=== PATIENT | male | born 1950 | race American Indian/Alaskan Native ===

== ENCOUNTER 2016-12-29 20:54 | Emergency (ER) | payer MEDICARE ==
[2016-12-29 22:31] LABS: Bacteria,Urine 1+ /HPF (Negative); Bilirubin,Urine NEG (Negative); Blood,Urine NEG (Negative); Ketones,Urine NEG (Negative); Leukocyte Esterase,Urine LG (Negative); Mucus,Urine FEW /HPF; Nitrite,Urine NEG (Negative); Urobilinogen,Urine < 2.0 mg/dL (<2.0)
[2016-12-29 22:35] LABS: WBC,Urine > 182.0 /HPF (0.0-6.0)
[2016-12-29 22:37] LABS: Basophils % (Auto) 0.3 % (0.0-1.8); Eosinophils % (Auto) 0.8 % (0.0-4.3); Hematocrit 28.1 % (35.5-45.6); Hemoglobin 9.4 gm/dl (11.8-15.2); Mean Corpuscular HGB Conc 34 % (32-34); Mean Corpuscular Hemoglobin 35 pg (28-32); Mean Corpuscular Volume 104 fl (84-94); Platelet Count 204 K/mm3 (140-440); Red Blood Count 2.69 M/mm3 (3.65-5.03); Red Cell Distribution Width 16.3 % (13.2-15.2); White Blood Count 6.7 K/mm3 (4.5-11.0)
[2016-12-29 22:54] LABS: BUN/Creatinine Ratio 8.23; Calcium 8.7 mg/dL (8.4-10.2); Chloride 102.1 mmol/L (98-107); Potassium 3.9 mmol/L (3.6-5.0)
[2016-12-29] MEDS ORDERED: TYLENOL PO ONE (23:28)
[2016-12-30 06:19] VITALS: BP 143/83
--- NOTE | 2016-12-30 07:39 | Emergency Department Report ---
ED Male HPI - General Chief complaint: Abdominal Pain Stated complaint: URINARY RETENTION Time Seen by Provider: 12/30/16 07:38 Source: patient, RN notes reviewed Mode of arrival: Ambulatory Limitations: No Limitations - History of Present Illness Initial comments: This is a 66-year-old male. He is previously unknown to me. His primary care physician is at the [facility]. The patient reports a history of hypertension, high cholesterol, and enlarged prostate. Patient also has recently completed radiation treatment for prostate cancer 2 weeks ago, all of his care was done at the [facility] as per his verbal recall. He can't recall the specific name of his urology specialist. The patient presents today with urinary retention. It was relieved with placement of a Lawrence catheter. The patient has no complaints at this time. He specifically denies headache, neck pain, chest pain, currently denies abdominal pain, and denies testicular pain. He denies hematemesis and bright red blood per rectum. -: Gradual Consistency: now resolved Improves with: other (symptoms are relieved with placement of the Lawrence catheter ) urinary retention - Related Data Previous Rx's Medication Instructions Recorded Last Taken Type Nitrofurantoin [place]/M-Cryst 100 mg PO Q12HR #14 capsule 12/30/16 Unknown Rx [Macrobid CAP] Allergies Allergy/AdvReac Type Severity Reaction Status Date / Time No Known Allergies Allergy Verified 12/30/16 08:10 ED Review of Systems ROS: Stated complaint: URINARY RETENTION Other details as noted in HPI Constitutional: denies: fever, malaise Eyes: denies: vision change ENT: denies: epistaxis Respiratory: denies: cough Cardiovascular: denies: chest pain Gastrointestinal: denies: vomiting Genitourinary: as per HPI. denies: testicular pain Musculoskeletal: denies: back pain Skin: denies: rash, lesions Neurological: denies: weakness Psychiatric: as per HPI ED Past Medical Hx - Past Medical History Hx Hypertension: Yes Hx Diabetes: Yes Hx of Cancer: Yes (Prostate) Additional medical history: High Cholesterol - Surgical History Additional Surgical History: Rectal Fissure repair - Social History Smoking Status: Current Every Day Smoker Substance Use Type: None - Medications Home Medications: Home Medications Medication Instructions Recorded Confirmed Last Taken Type Nitrofurantoin [place]/M-Cryst 100 mg PO Q12HR #14 capsule 12/30/16 Unknown Rx [Macrobid CAP] ED Physical Exam - General Limitations: No Limitations General appearance: alert, in no apparent distress - Head Head exam: Present: atraumatic, normocephalic - Eye Eye exam: Present: normal appearance, EOMI. Absent: nystagmus - ENT ENT exam: Present: normal exam, normal orophraynx, mucous membranes moist, normal external ear exam - Neck Neck exam: Present: normal inspection, full ROM. Absent: tenderness, meningismus - Respiratory Respiratory exam: Present: normal lung sounds bilaterally. Absent: respiratory distress, wheezes, rales, rhonchi, stridor, chest wall tenderness, accessory muscle use, decreased breath sounds, prolonged expiratory - Cardiovascular Cardiovascular Exam: Present: regular rate, normal rhythm, normal heart sounds. Absent: bradycardia, tachycardia, irregular rhythm, systolic murmur, diastolic murmur, rubs, gallop - GI/Abdominal GI/Abdominal exam: Present: soft, normal bowel sounds. Absent: distended, tenderness, guarding, rebound, rigid, pulsatile mass - Rectal Rectal exam: Present: deferred - exam: Present: normal inspection (there is no testicular tenderness. There is normal testicular lie bilaterally. There is normal cremasteric reflex bilaterally.) External exam: Present: other (there is a Lawrence catheter in place draining clear yellow urine) - Extremities Exam Extremities exam: Present: normal inspection, full ROM, normal capillary refill. Absent: calf tenderness - Back Exam Back exam: Present: normal inspection, full ROM. Absent: tenderness, CVA tenderness (R), CVA tenderness (L), muscle spasm, paraspinal tenderness, vertebral tenderness - Neurological Exam Neurological exam: Present: alert, oriented X3, normal gait, other (Extraocular movements intact. Tongue midline. No facial droop. Facial sensation intact to light touch in the V1, V2, V3 distribution bilaterally. 5 and 5 strength in 4 extremities.. Sensation is intact to light touch in 4 extremities.). Absent : motor sensory deficit - Psychiatric Psychiatric exam: Present: normal affect, normal mood - Skin Skin exam: Present: warm, dry, intact, normal color. Absent: rash ED Course Vital Signs 12/29/16 12/29/16 12/30/16 21:22 21:30 03:09 Temperature 98.9 F 98.9 F 98 F Pulse Rate 104 H 104 H 68 Respiratory 20 16 Rate Blood Pressure 108/60 Blood Pressure 108/60 121/74 [Left] O2 Sat by Pulse 100 100 100 Oximetry 12/30/16 12/30/16 06:18 06:53 Temperature Pulse Rate 71 Respiratory 16 18 Rate Blood Pressure Blood Pressure 143/83 [Left] O2 Sat by Pulse 100 100 Oximetry ED Medical Decision Making - Lab Data Result diagrams: 12/29/16 22:21 12/29/16 22:26 Vital Signs 12/29/16 12/29/16 12/30/16 21:22 21:30 03:09 Temperature 98.9 F 98.9 F 98 F Pulse Rate 104 H 104 H 68 Respiratory 20 16 Rate Blood Pressure 108/60 Blood Pressure 108/60 121/74 [Left] O2 Sat by Pulse 100 100 100 Oximetry 12/30/16 12/30/16 06:18 06:53 Temperature Pulse Rate 71 Respiratory 16 18 Rate Blood Pressure Blood Pressure 143/83 [Left] O2 Sat by Pulse 100 100 Oximetry Lab Results 12/29/16 12/29/16 12/29/16 Range/Units 21:51 22:21 22:26 WBC 6.7 (4.5-11.0) K/mm3 RBC 2.69 L (3.65-5.03) M/mm3 Hgb 9.4 L (11.8-15.2) gm/dl Hct 28.1 L (35.5-45.6) % MCV 104 H (84-94) fl MCH 35 H (28-32) pg MCHC 34 (32-34) % RDW 16.3 H (13.2-15.2) % Plt Count 204 (140-440) K/mm3 Lymph % (Auto) 9.1 L (13.4-35.0) % Wilson % (Auto) 5.9 (0.0-7.3) % Eos % (Auto) 0.8 (0.0-4.3) % Baso % (Auto) 0.3 (0.0-1.8) % Lymph # 0.6 L (1.2-5.4) K/mm3 Wilson # 0.4 (0.0-0.8) K/mm3 Eos # 0.1 (0.0-0.4) K/mm3 Baso # 0.0 (0.0-0.1) K/mm3 Seg Neutrophils % 83.9 H (40.0-70.0) % Seg Neutrophils # 5.7 (1.8-7.7) K/mm3 Sodium 139 (137-145) mmol/L Potassium 3.9 (3.6-5.0) mmol/L Chloride 102.1 (98-107) mmol/L Carbon Dioxide 19 L (22-30) mmol/L Anion Gap 22 mmol/L BUN 14 (9-20) mg/dL Creatinine 1.7 H (0.8-1.5) mg/dL Estimated GFR 40 ml/min BUN/Creatinine Ratio 8.23 % Glucose 118 H (75-100) mg/dL Calcium 8.7 (8.4-10.2) mg/dL Urine Color Yellow (Yellow) Urine Turbidity Slightly-cloudy (Clear) Urine pH 6.0 (5.0-7.0) Ur Specific [place] 1.012 (1.003-1.030) Urine Protein 100 mg/dl (Negative) mg/dL Urine Glucose (UA) Neg (Negative) mg/dL Urine Ketones Neg (Negative) mg/dL Urine Blood Neg (Negative) Urine Nitrite Neg (Negative) Urine Bilirubin Neg (Negative) Urine Urobilinogen < 2.0 (<2.0) mg/dL Ur Leukocyte Esterase Lg (Negative) Urine WBC (Auto) > 182.0 H (0.0-6.0) /HPF Urine RBC (Auto) 12.0 (0.0-6.0) /HPF Urine Bacteria (Auto) 1+ (Negative) /HPF Urine Mucus Few /HPF - Medical Decision Making Differential diagnosis: Hemorrhagic cystitis, radiation cystitis, urinary retention, urinary tract infection, renal insufficiency Assessment and plan: 66-year-old male with urinary retention, urinalysis that suggests urinary tract infection, with incidental mild renal insufficiency. Also having a asymptomatic macrocytic anemia. The patient is afebrile with reassuring vital signs, and his tachycardia resolved. He has no complaints at this time. He will be discharged with Macrobid. He is instructed to follow up with a primary care doctor for his anemia and renal insufficiency, and he is instructed to follow up with urology specialist. Return precautions are reviewed. Critical care attestation.: If time is entered above; I have spent that time in minutes in the direct care of this critically ill patient, excluding procedure time. ED Disposition Clinical Impression: Urinary retention, Anemia, Renal insufficiency Disposition: DC-01 TO HOME OR SELFCARE Is pt being admited?: No Does the pt Need Aspirin: No Condition: Stable Instructions: Impaired Kidney Function (ED) Additional Instructions: Laboratory studies indicated anemia and impaired kidney function. Follow-up with the primary care doctor for these conditions within the next 7-[address] Kenton Ramos is a local primary care doctor. He can also follow-up with the nephrology/kidney specialist for your kidney function; is a local kidney specialist. Take antibiotics as directed. Cultures were sent today, results will be available in the next 3-5 days. Please have a primary care doctor contact the medical records department to obtain culture results. Follow up with a urology specialist within the next 7- 10 days for trial of void. Do not remove the Lawrence catheter on your own. It should be removed by medical professional. Return to the ER right away with fevers, chills, chest pain, shortness of breath , confusion, intractable nausea or vomiting, inability to tolerate liquid feeds. Prescriptions: Nitrofurantoin Wilson/M-Cryst [Macrobid CAP] 100 mg PO Q12HR #14 capsule Referrals: PRIMARY MD SUDHA [Primary Care Provider] - 3-5 Days ISAURA YU MD [Staff Physician] - 3-5 Days KENTON RAMOS MD [Staff Physician] - 3-5 Days SELENE PATRICK MD [Staff Physician] - 3-5 Days
== END 2016-12-30 08:35 | disposition home or self-care (01) ==
LOC: ED 20:54
DX: R33.9 Retention of urine, unspecified (principal); D64.9 Anemia, unspecified; N28.9 Disorder of kidney and ureter, unspecified; I10 Essential (primary) hypertension; E11.9 Type 2 diabetes mellitus without complications; C61 Malignant neoplasm of prostate; E78.00 Pure hypercholesterolemia, unspecified; F17.200 Nicotine dependence, unspecified, uncomplicated
CPT/HCPCS: 36415; 80048; 81001; 85025; 87086; 99283

== ENCOUNTER 2018-10-18 13:28 | Emergency (ER) | payer MEDICARE ==
--- NOTE | 2018-10-18 16:34 | Emergency Department Report ---
Blank Doc - Documentation Documentation: 68 y o male presents with Lip swelling x today no aiway compromise takes medications for DM,HTN, cholester ACC eval
[2018-10-18] MEDS ORDERED: BENADRYL PO ONE ×2 (18:16→18:20)
[2018-10-18] MEDS ORDERED: DELTASONE PO ONE (18:16)
[2018-10-18] MEDS ORDERED: DELTASONE ONE (18:21)
--- NOTE | 2018-10-18 18:56 | Emergency Department Report ---
ED Allergic Reaction HPI - General Chief complaint: Allergic Reaction Stated complaint: MOUTH/JAW SWOLLEN Time Seen by Provider: 10/18/18 16:31 Source: patient Mode of arrival: Ambulatory Limitations: No Limitations - History of Present Illness Initial Comments: 68-year-old [place] male on the Lisinipril for several years presents emergency department complaining of swelling to the left lip after taking the new medication Tarozison for his prostate. Patient states typical medications for the first time last night and later on the evening of the skin early-morning begin to to develop swelling to the left upper lip. Reports no dysphagia, odynophagia, wheezing, chest pain. Reports no presyncope. MD Complaint: allergic reaction -: Gradual Symptoms: lip swelling Severity: mild Treatment Prior to Arrival: none Previous Allergy History: angioedema - Related Data Previous Rx's Medication Instructions Recorded Last Taken Type Nitrofurantoin [place]/M-Cryst 100 mg PO Q12HR #14 capsule 12/30/16 Unknown Rx [Macrobid CAP] hydrOXYzine HCL [Atarax] 25 mg PO Q6HR PRN #20 tablet 10/18/18 Unknown Rx predniSONE [Deltasone] 50 mg PO QDAY #5 tab 10/18/18 Unknown Rx Allergies Allergy/AdvReac Type Severity Reaction Status Date / Time No Known Allergies Allergy Verified 10/18/18 13:33 ED Review of Systems ROS: Stated complaint: MOUTH/JAW SWOLLEN Other details as noted in HPI Constitutional: denies: chills, fever Eyes: denies: eye pain, eye discharge, vision change ENT: denies: ear pain, throat pain Respiratory: denies: cough, shortness of breath, wheezing Cardiovascular: denies: chest pain, palpitations Endocrine: no symptoms reported Gastrointestinal: denies: abdominal pain, nausea, diarrhea Genitourinary: denies: urgency, dysuria Musculoskeletal: denies: back pain, joint swelling, arthralgia Skin: denies: rash, lesions Neurological: denies: headache, weakness, paresthesias Psychiatric: denies: anxiety, depression Hematological/Lymphatic: denies: easy bleeding, easy bruising ED Past Medical Hx - Past Medical History Previous Medical History?: Yes Hx Hypertension: Yes Hx Diabetes: Yes Additional medical history: High Cholesterol - Surgical History Past Surgical History?: Yes Additional Surgical History: Rectal Fissure repair - Social History Smoking Status: Current Every Day Smoker Substance Use Type: None - Medications Home Medications: Home Medications Medication Instructions Recorded Confirmed Last Taken Type Nitrofurantoin [place]/M-Cryst 100 mg PO Q12HR #14 capsule 12/30/16 Unknown Rx [Macrobid CAP] hydrOXYzine HCL [Atarax] 25 mg PO Q6HR PRN #20 tablet 10/18/18 Unknown Rx predniSONE [Deltasone] 50 mg PO QDAY #5 tab 10/18/18 Unknown Rx ED Physical Exam - General Limitations: No Limitations General appearance: alert, in no apparent distress - Head Head exam: Present: atraumatic, normocephalic - Eye Eye exam: Present: normal appearance, PERRL, EOMI Pupils: Present: normal accommodation - ENT ENT exam: Present: normal exam, mucous membranes moist, TM's normal bilaterally - Neck Neck exam: Present: normal inspection, full ROM - Respiratory Respiratory exam: Present: normal lung sounds bilaterally. Absent: respiratory distress - Cardiovascular Cardiovascular Exam: Present: regular rate, normal rhythm. Absent: systolic murmur, diastolic murmur, rubs, gallop - GI/Abdominal GI/Abdominal exam: Present: soft, normal bowel sounds. Absent: tenderness, guarding, hyperactive bowel sounds, hypoactive bowel sounds - Rectal Rectal exam: Present: deferred - Extremities Exam Extremities exam: Present: normal inspection, full ROM, normal capillary refill - Back Exam Back exam: Present: normal inspection, full ROM. Absent: CVA tenderness (R), CVA tenderness (L), muscle spasm, paraspinal tenderness - Neurological Exam Neurological exam: Present: alert, oriented X3, CN II-XII intact, normal gait - Psychiatric Psychiatric exam: Present: normal affect, normal mood - Skin Skin exam: Present: warm, dry, intact, normal color. Absent: rash ED Course Vital Signs 10/18/18 16:32 Temperature 98.4 F Pulse Rate 83 Respiratory 16 Rate Blood Pressure 123/81 O2 Sat by Pulse 99 Oximetry ED Medical Decision Making - Medical Decision Making Mysteries been no noted. No acute distress, is breathing well. No stridor Spigner full sentences. Discussed with him the need to hold his medication and follow with primary care provider for restarting or make any medication adjustments. Advised to return to emergency department should he develop any worsening in shortness of breath, worsening swelling,, chest pain or severe wheezing Critical care attestation.: If time is entered above; I have spent that time in minutes in the direct care of this critically ill patient, excluding procedure time. ED Disposition Clinical Impression: Angioedema Disposition: TO HOME OR SELFCARE Is pt being admited?: No Does the pt Need Aspirin: No Condition: Stable Instructions: Angioedema (ED) Prescriptions: hydrOXYzine HCL [Atarax] 25 mg PO Q6HR PRN #20 tablet PRN Reason: Itching predniSONE [Deltasone] 50 mg PO QDAY #5 tab Referrals: EFE CHEUNG MD [Primary Care Provider] - 3-5 Days
[2018-10-18 19:06] VITALS: BP 167/90
== END 2018-10-18 19:06 | disposition home or self-care (01) ==
LOC: ED 13:28
DX: T78.3XXA Angioneurotic edema, initial encounter (principal); I10 Essential (primary) hypertension; E11.9 Type 2 diabetes mellitus without complications; F17.200 Nicotine dependence, unspecified, uncomplicated; E78.00 Pure hypercholesterolemia, unspecified; Z79.899 Other long term (current) drug therapy; X58.XXXA Exposure to other specified factors, initial encounter
CPT/HCPCS: 99282; J7512

== ENCOUNTER 2019-05-15 11:11 | Emergency (ER) | payer MEDICARE ==
[2019-05-15 11:20] VITALS: BP 147/91
--- NOTE | 2019-05-15 11:21 | Event Note ---
ED Screening Note Date of service: 05/15/19 Time: 11:19 ED Screening Note: This is a 69 y.o. M. that presents to the ER with rectal pain for 5 days. PMH of hemorrhoids, DM2, HTN, BPH, and anemia This initial assessment/diagnostic orders/clinical plan/treatment(s) is/are subject to change based on patients health status, clinical progression and re- assessment by fellow clinical providers in the ED. Further treatment and workup at subsequent clinical providers discretion. Patient/guardian urged not to elope from the ED as their condition may be serious if not clinically assessed and managed. Initial orders include:
--- NOTE | 2019-05-15 13:46 | Emergency Department Report ---
ED General Adult HPI - General Chief complaint: Rectal Pain Stated complaint: HEMMORRHOIDS/SWOLLEN BLEEDING Time Seen by Provider: 05/15/19 11:18 Source: patient Mode of arrival: Ambulatory Limitations: No Limitations - History of Present Illness Initial comments: Patient presents to the emergency department with a chief complaint of hemorrhoids. Patient states is chronic history of hemorrhoids and is usually able to control them with a medication called Canasa which is prescribed to him by the [facility]. Patient states her last couple of days and medication is not working and is having a flareup of his hemorrhoids. Patient does endorse some bleeding but denies abdominal pain. -: Gradual Severity scale (0 -10): 4 Quality: aching Consistency: constant Improves with: none Worsens with: none Associated Symptoms: denies other symptoms Treatments Prior to Arrival: none - Related Data Previous Rx's Medication Instructions Recorded Last Taken Type Nitrofurantoin [place]/M-Cryst 100 mg PO Q12HR #14 capsule 12/30/16 Unknown Rx [Macrobid CAP] hydrOXYzine HCL [Atarax] 25 mg PO Q6HR PRN #20 tablet 10/18/18 Unknown Rx predniSONE [Deltasone] 50 mg PO QDAY #5 tab 10/18/18 Unknown Rx Docusate Sodium [Colace] 100 mg PO BID PRN #30 capsule 05/15/19 Unknown Rx Hydrocortisone [Proctosol-Hc 2.5% 28.35 gm RC BID #1 cream..g. 05/15/19 Unknown Rx TOP CREAM] Allergies Allergy/AdvReac Type Severity Reaction Status Date / Time No Known Allergies Allergy Verified 10/18/18 13:33 ED Review of Systems ROS: Stated complaint: HEMMORRHOIDS/SWOLLEN BLEEDING Other details as noted in HPI Comment: All other systems reviewed and negative Constitutional: denies: chills, fever Eyes: denies: eye pain, eye discharge, vision change ENT: denies: ear pain, throat pain Respiratory: denies: cough, shortness of breath, wheezing Cardiovascular: denies: chest pain, palpitations Endocrine: no symptoms reported Gastrointestinal: denies: abdominal pain, nausea, diarrhea Genitourinary: denies: urgency, dysuria Musculoskeletal: denies: back pain, joint swelling, arthralgia Skin: denies: rash, lesions Neurological: denies: headache, weakness, paresthesias Psychiatric: denies: anxiety, depression Hematological/Lymphatic: denies: easy bleeding, easy bruising ED Past Medical Hx - Past Medical History Previous Medical History?: Yes Hx Hypertension: Yes Hx Diabetes: Yes Additional medical history: High Cholesterol - Surgical History Past Surgical History?: Yes Additional Surgical History: Rectal Fissure repair - Social History Smoking Status: Current Every Day Smoker Substance Use Type: None - Medications Home Medications: Home Medications Medication Instructions Recorded Confirmed Last Taken Type Nitrofurantoin [place]/M-Cryst 100 mg PO Q12HR #14 capsule 12/30/16 Unknown Rx [Macrobid CAP] hydrOXYzine HCL [Atarax] 25 mg PO Q6HR PRN #20 tablet 10/18/18 Unknown Rx predniSONE [Deltasone] 50 mg PO QDAY #5 tab 10/18/18 Unknown Rx Docusate Sodium [Colace] 100 mg PO BID PRN #30 capsule 05/15/19 Unknown Rx Hydrocortisone [Proctosol-Hc 2.5% 28.35 gm RC BID #1 cream..g. 05/15/19 Unknown Rx TOP CREAM] ED Physical Exam - General Limitations: No Limitations General appearance: alert, in no apparent distress - Head Head exam: Present: atraumatic, normocephalic - Eye Eye exam: Present: normal appearance, PERRL, EOMI - ENT ENT exam: Present: mucous membranes moist - Neck Neck exam: Present: normal inspection - Respiratory Respiratory exam: Present: normal lung sounds bilaterally. Absent: respiratory distress - Cardiovascular Cardiovascular Exam: Present: regular rate, normal rhythm. Absent: systolic mu rmur, diastolic murmur, rubs, gallop - GI/Abdominal GI/Abdominal exam: Present: soft, normal bowel sounds - Rectal Rectal exam: Present: hemorrhoids (external nonthrombosed hemorrhoids) - Extremities Exam Extremities exam: Present: normal inspection - Back Exam Back exam: Present: normal inspection - Neurological Exam Neurological exam: Present: alert, oriented X3 - Psychiatric Psychiatric exam: Present: normal affect, normal mood - Skin Skin exam: Present: warm, dry, intact, normal color. Absent: rash ED Course Vital Signs 05/15/19 11:19 Temperature 98.5 F Pulse Rate 90 Respiratory 20 Rate Blood Pressure 147/91 O2 Sat by Pulse 98 Oximetry Critical care attestation.: If time is entered above; I have spent that time in minutes in the direct care of this critically ill patient, excluding procedure time. ED Disposition Clinical Impression: Acute hemorrhoid Disposition: DC-01 TO HOME OR SELFCARE Is pt being admited?: No Does the pt Need Aspirin: No Condition: Stable Instructions: Hemorrhoids (ED), Sitz Bath (GEN) Additional Instructions: Please use a sitz bath Prescriptions: Docusate Sodium [Colace] 100 mg PO BID PRN #30 capsule PRN Reason: Constipation Hydrocortisone [Proctosol-Hc 2.5% TOP CREAM] 28.35 gm RC BID #1 cream..g. Referrals: [facility] [Outside] - 3-5 Days ANGEL LUIS MURRIETA MD [Staff Physician] - 3-5 Days Time of Disposition: 13:44
== END 2019-05-15 14:23 | disposition home or self-care (01) ==
LOC: ED 11:11
DX: K62.5 Hemorrhage of anus and rectum (principal); I10 Essential (primary) hypertension; E11.9 Type 2 diabetes mellitus without complications; E78.00 Pure hypercholesterolemia, unspecified; F17.200 Nicotine dependence, unspecified, uncomplicated; Z79.899 Other long term (current) drug therapy
CPT/HCPCS: 99282